=== PATIENT | female | born 1985 | race Two or more races ===

== ENCOUNTER 2020-07-29 01:25 | Observation (INO) | payer MEDICAID ==
[~2020-07-29] VITALS: Ht 144.8 cm; Wt 104.3 kg
[2020-07-29] MEDS ORDERED: PNV1TABL50 PO (05:02)
== END 2020-07-29 05:12 | disposition home or self-care (01) ==
LOC: 8 EST LDRP 01:25
PROVIDERS: ADMIT Obstetrics & Gynecology; ATTEND Obstetrics & Gynecology
DX: O62.9 Abnormality of forces of labor, unspecified (principal); Z3A.39 39 weeks gestation of pregnancy
CPT/HCPCS: 59025; G0378; 99281

== ENCOUNTER 2020-08-03 00:02 | Inpatient (IN) | payer MEDICAID ==
[~2020-08-03] VITALS: Ht 152.4 cm; Wt 104.3 kg
[~2020-08-03 00:02] MED LIST: PNV1TABL50 PO
[2020-08-03] MEDS ORDERED: BUTORPHANOL TARTRATE 2 MG/ML VIAL IV PRN ×2 (01:45→10:15)
[2020-08-03] MEDS ORDERED: DEXT 5%/LR + PITOCIN 20UNITS/L 1,000 ML IV SCH (01:45)
[2020-08-03] MEDS ORDERED: LIDOCAINE HCL 1% 20ML VIAL (Pyxis) INJ INFIL SCH (01:45)
[2020-08-03] MEDS ORDERED: MISOPROSTOL 100MCG TABLET VG SCH (01:45)
[2020-08-03] MEDS ORDERED: METHYLERGONOVINE MALEATE 0.2 MG/ML IM PRN (01:45)
[2020-08-03] MEDS ORDERED: CARBOPROST TROMETHAMINE 250 MCG/ML AMPUL IM PRN (01:45)
[2020-08-03] MEDS ORDERED: LACTATED RINGERS 1,000 ML IV SCH (01:45)
[2020-08-03] MEDS ORDERED: AMPICILLIN 2,000 MG in SODIUM CHLORIDE 0.9% 100 ML IV SCH (02:00)
[2020-08-03] MEDS ORDERED: MISOPROSTOL 100MCG TABLET VG PRN (02:00)
[2020-08-03 02:05] LABS: CLARITY URINE CLEAR (CLEAR); COLOR URINE YELLOW (YELLOW); KETONES URINE NEGATIVE (NEGATIVE); LEUKOCYTE ESTERASE URINE NEGATIVE (NEGATIVE); NITRITE URINE NEGATIVE (NEGATIVE); OCCULT BLOOD URINE NEGATIVE (NEGATIVE); PROTEIN URINE NEGATIVE (NEGATIVE); SPECIFIC GRAVITY URINE 1.007 (1.005-1.030); UROBILINOGEN URINE 0.2 E.U./dL (0.2-1.0)
[2020-08-03 02:06] LABS: BASOPHILS % 0.2 % (0.0-2.0); EOSINOPHILS % 0.9 % (0.0-5.0); HEMATOCRIT. 34.2 % (36.0-48.0); HEMOGLOBIN. 11.5 g/dL (12.0-16.0); LYMPHOCYTES % 27.8 % (20.0-50.0); MEAN CORPUSCULAR HEMOGLOBIN 29.2 pg (28.0-32.0); MEAN CORPUSCULAR VOLUME 87.3 fL (81.0-99.0); MEAN PLATELET VOLUME 9.9 fl (7.4-10.4); MONOCYTES % 7.2 % (2.0-8.0); NEUTROPHILS % 63.9 % (40.0-76.0); PLATELET 228 x1000/uL (130-400); RED BLOOD CELL COUNT 3.92 mill/uL (4.2-5.4); RED CELL DISTRIBUTION WIDTH 14.3 % (11.6-14.6)
[2020-08-03 02:18] LABS: *AMPHETAMINES SCREEN URINE NEGATIVE (NEGATIVE); *BARBITURATES SCREEN URINE NEGATIVE (NEGATIVE); *BENZODIAZEPINES SCREEN URINE NEGATIVE (NEGATIVE); *COCAINE SCREEN URINE NEGATIVE (NEGATIVE); METHADONE URINE SCREEN NEGATIVE (NEGATIVE); OPIATES URINE SCREEN NEGATIVE (NEGATIVE)
[2020-08-03 02:19] LABS: CANNABINOID URINE SCREEN NEGATIVE (NEGATIVE); PHENCYCLIDINE URINE SCREEN NEGATIVE (NEGATIVE)
[2020-08-03 02:37] LABS: HEPATITIS B SURFACE ANTIGEN NEGATIVE; INR 0.9; PARTIAL THROMBOPLASTIN TIME 27.9 sec (23.4-31.0); PROTHROMBIN TIME 9.6 sec (9.6-11.0)
[2020-08-03] MEDS ORDERED: LIDOCAINE HCL 2%/EPINEPHRINE 1:100,000 20 ML VIAL INFIL ONE (04:00)
[2020-08-03] MEDS ORDERED: AMPICILLIN 1,000 MG in SODIUM CHLORIDE 0.9% 50 ML IV SCH (08:00)
[2020-08-03] MEDS ORDERED: TERBUTALINE SULFATE 1MG/ML VIAL SUBCUT ONE (08:07)
[2020-08-03] MEDS ORDERED: CITRIC ACID/SODIUM CITRATE SOLN 30ML UDC PO ONE (08:15)
[2020-08-03] MEDS ORDERED: FENTANYL CITRATE/PF 50MCG/ML 2ML VIAL ONE ×2 (08:20→09:26)
[2020-08-03] MEDS ORDERED: ONDANSETRON HCL 4MG/2ML INJ ONE ×2 (08:20→09:43)
[2020-08-03] MEDS ORDERED: PHENYLEPHRINE HCL 10 MG/ML 1ML (IV VIAL) IV ONE (08:20)
[2020-08-03] MEDS ORDERED: MORPHINE SULFATE/PF 1MG/ML 10ML AMP ONE (08:20)
[2020-08-03] MEDS ORDERED: EPHEDRINE SULFATE 50MG/ML VIAL ONE ×2 (08:20→09:43)
[2020-08-03] MEDS ORDERED: OXYTOCIN 10 UNITS/ML 1ML ONE ×2 (08:20→09:44)
[2020-08-03] MEDS ORDERED: GLYCOPYRROLATE 0.2 MG/ML 2ML VIAL ONE ×2 (08:21→09:43)
[2020-08-03] MEDS ORDERED: CEFAZOLIN SODIUM 1000MG/VIAL ONE (08:21)
[2020-08-03] MEDS ORDERED: ROPIVACAINE HCL/PF EPIDURAL 200 ML EPI SCH (08:35)
[2020-08-03] MEDS ORDERED: KETOROLAC 60MG/2ML VIAL IM ONE (10:09)
[2020-08-03] MEDS ORDERED: RHO(D) IMMUNE GLOBULIN 300 MCG/SYR IM PRN (10:15)
[2020-08-03] MEDS ORDERED: IBUPROFEN 400MG TABLET PO PRN (10:15)
[2020-08-03] MEDS ORDERED: BISACODYL 10MG SUPP PR PRN (10:15)
[2020-08-03] MEDS ORDERED: DIPHENHYDRAMINE 50MG/ML VIAL IV PRN (10:15)
[2020-08-03] MEDS ORDERED: NALOXONE HCL 0.4 MG/ML 1ML VIAL IV PRN (10:15)
[2020-08-03] MEDS ORDERED: KETOROLAC 30MG/ML VIAL IV PRN (10:15)
[2020-08-03] MEDS: DEXT 5%/LR + PITOCIN 20UNITS/L 1,000 ML IV SCH ×2 (12:04→18:34)
[2020-08-03 13:10] VITALS: BP 116/68
[2020-08-03 13:40] VITALS: BP 112/72
[2020-08-03] MEDS: KETOROLAC 30MG/ML VIAL IV SCH ×2 (16:00→22:23)
[2020-08-03 16:45] VITALS: BP 98/50
[2020-08-03] MEDS ORDERED: INFLUENZA VACCINE 05/PF 0.5 ML VIAL IM ONE (17:00)
[2020-08-03] MEDS ORDERED: TETANUS, DIPHTHERIA, PERTUSSIS VAC/PF 0.5ML (>7YR OLD) IM ONE (17:00)
[2020-08-03 20:00] VITALS: BP 110/58
[2020-08-04] VITALS: BP 108/60
[2020-08-04] MEDS: DEXT 5%/LR + PITOCIN 20UNITS/L 1,000 ML IV SCH (02:31)
[2020-08-04 04:00] VITALS: BP 106/62
[2020-08-04] MEDS: KETOROLAC 30MG/ML VIAL IV SCH (04:49)
[2020-08-04 07:43] VITALS: BP 106/59
[2020-08-04 07:43] LABS: BASOPHILS % 0.4 % (0.0-2.0); EOSINOPHILS % 0.4 % (0.0-5.0); HEMATOCRIT. 29.1 % (36.0-48.0); HEMOGLOBIN. 9.9 g/dL (12.0-16.0); LYMPHOCYTES % 19.1 % (20.0-50.0); MEAN CORPUSCULAR HEMOGLOBIN 29.8 pg (28.0-32.0); MEAN CORPUSCULAR VOLUME 87.6 fL (81.0-99.0); MEAN PLATELET VOLUME 9.7 fl (7.4-10.4); MONOCYTES % 7.3 % (2.0-8.0); NEUTROPHILS % 72.8 % (40.0-76.0); PLATELET 175 x1000/uL (130-400); RED BLOOD CELL COUNT 3.32 mill/uL (4.2-5.4); RED CELL DISTRIBUTION WIDTH 14.5 % (11.6-14.6)
[2020-08-04 16:05] VITALS: BP 110/60
[2020-08-04] MEDS: IBUPROFEN 800MG TABLET PO PRN ×2 (16:19→22:33)
[2020-08-04 20:00] VITALS: BP 107/62
[2020-08-05] VITALS: BP 113/58
[2020-08-05 04:00] VITALS: BP 108/55
[2020-08-05] MEDS ORDERED: IBUP-2030 PO (07:44)
[2020-08-05] MEDS ORDERED: FERR325T6 MT (07:44)
[2020-08-05 08:00] VITALS: BP 137/89
[2020-08-05] MEDS ORDERED: INFLUENZA VACCINE 05/PF 0.5 ML VIAL IM ONE (09:00)
[2020-08-05 11:47] VITALS: BP 137/89
[2020-08-05] MEDS: IBUPROFEN 800MG TABLET PO PRN (11:47)
== END 2020-08-05 12:15 | disposition home or self-care (01) | DRG 540 ==
LOC: OBSVTOIN 00:02 → 8 EST LDRP 00:02 → 8EST 12:57
PROVIDERS: ADMIT Obstetrics & Gynecology; ATTEND Obstetrics & Gynecology
PROC: 10D00Z1 Extraction of Products of Conception, Low, Open Approach (ICD-10-PCS; principal; 2020-08-03)
PROC: 0UB70ZZ Excision of Bilateral Fallopian Tubes, Open Approach (ICD-10-PCS; 2020-08-03)
PROC: 0TTB0ZZ Resection of Bladder, Open Approach (ICD-10-PCS; 2020-08-03)
DX: O76 Abnormality in fetal heart rate and rhythm complicating labor and delivery (principal); N83.201 Unspecified ovarian cyst, right side; O99.214 Obesity complicating childbirth; E66.9 Obesity, unspecified; O34.83 Maternal care for other abnormalities of pelvic organs, third trimester; O69.81X0 Labor and delivery complicated by cord around neck, without compression, not applicable or unspecified; Z20.828 Contact with and (suspected) exposure to other viral communicable diseases; O77.0 Labor and delivery complicated by meconium in amniotic fluid; Z30.2 Encounter for sterilization; Z37.0 Single live birth; Z3A.40 40 weeks gestation of pregnancy
CPT/HCPCS: 36415; 76815; 80305; 81003; 85025; 86592; 86703; 86762; 86850; 86900; 87340; 87426; 88302; 88304; 88307; 90686; 90715; J0290; J0595; J0690; J1885; J2210; J2274; J2370; J2405; J2590; J2795; J3010; J3490; J7050; J7120; U0003